=== PATIENT | female | born 1955 | race Two or more races ===

== ENCOUNTER → 2024-03-23 | Outpatient (CLI) | payer MEDICARE, MEDICAID, SELFPAY ==
--- NOTE | 2024-03-23 09:00 | XR_ITS ---
Examination: Breast ultrasound, unilateral, right complete Date and time of exam: March 23, 2024 0841 hours INDICATIONS: Mammogram 01/27/2024 10 mm focal asymmetry upper right breast MLO view Technique: Real-time garay scale ultrasonographic imaging performed right breast including all 4 quadrants as well as nipple retroareolar and axillary region. Findings: No cystic or solid mass IMPRESSION: BI-RADS Category 1: Negative study
--- NOTE | 2024-03-23 09:45 | XR_ITS ---
Examination: Diagnostic digital mammography, unilateral, right Computer aided detection 3-D breast Tomosynthesis, unilateral Date and time of exam: March 23, 2024 0853 hours INDICATIONS: Mammogram 01/27/2024 10 mm focal asymmetry upper right breast MLO view, 5.6 cm from the nipple Technique: Nonmagnified MLO, CC views of the right breast have been obtained, reconstructed from 3-D Tomosynthesis images. R2 computer aided detection program utilized for evaluation of suspicious masses and/or abnormal calcifications. 3-D Tomosynthesis images obtained. Findings: Scattered areas of fibroglandular density Breast sonogram today demonstrates no suspicious mass Spot compression MLO view again demonstrates focal asymmetry, probably benign in the upper right breast Impression: BI-RADS category 3: Probably benign findings Recommend 1 additional 6 month right mammogram follow-up to document stability of focal asymmetry upper right breast MLO view
== END | disposition home or self-care (01) ==
LOC: CDIM 08:19
PROVIDERS: PCP Physician Assistant; Referring Provider Physician Assistant; Visit Provider Physician Assistant
DX: R92.331 Mammographic heterogeneous density, right breast (principal); N64.89 Other specified disorders of breast
CPT/HCPCS: 76641; 77061; 77065; G0279

== ENCOUNTER → 2024-10-26 | Outpatient (CLI) | payer MEDICARE, MEDICAID, SELFPAY ==
--- NOTE | 2024-10-26 08:00 | XR_ITS ---
Examination: Diagnostic digital mammography, unilateral, right Computer aided detection 3-D breast Tomosynthesis, unilateral Date and time of exam: 10/26/2024 at 0750 hours INDICATIONS: Mammogram 01/27/2024 10 mm focal asymmetry upper right breast MLO view Technique: Nonmagnified MLO, CC views of the right breast have been obtained, reconstructed from 3-D Tomosynthesis images. R2 computer aided detection program utilized for evaluation of suspicious masses and/or abnormal calcifications. 3-D Tomosynthesis images obtained. Findings: Scattered areas of fibroglandular density. No interval suspicious masses Benign calcifications Impression: BI-RADS category 2: Benign findings Return to yearly follow-up mammography
== END | disposition home or self-care (01) ==
LOC: CDIM 07:40
PROVIDERS: Referring Provider Physician Assistant; Visit Provider Physician Assistant
DX: R92.321 Mammographic fibroglandular density, right breast (principal)
CPT/HCPCS: 77061; 77065; G0279

== ENCOUNTER 2024-11-30 19:34 | Emergency (ER) | payer MEDICARE, MEDICAID, SELFPAY ==
[2024-11-30 19:37] VITALS: BMI 26.2
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
[2024-11-30 19:45] VITALS: BP 198/83; PULSE 95; RESP 18; TEMP 37.1; O2SAT 97
--- NOTE | 2024-11-30 19:51 | PC.NURSE ---
1948 PPD NOTIFIED AND HAVE ARRIVED IN PT ROOM AT THIS TIME.
[2024-11-30] MEDS: ACETAMINOPHEN 500 MG TABLET 1000 MG PO (20:48)
[2024-11-30] MEDS: DIPHTH,PERTUSS(ACELL),TET VAC 0.5 ML SYR- ADULT IMi (20:48)
--- NOTE | 2024-11-30 21:12 | EKG_ITS ---
[facility] Test Date: 2024-11-30 Pat Name: GERARD HUBER Department: Room: - Gender: Female Reporter Anchor: : 1955 Requested By: Alison Burton Order Number: [id number] Reading MD: Alison Burton Measurements Intervals [place] Rate: 68 P: 62 [place]: 161 QRS: 10 QRSD: 85 T: 41 QT: 394 QTc: 421 Interpretive Statements SINUS RHYTHM No previous ECG available for comparison /store/S0/[id number]/ecg/[id number].pdf
[2024-11-30] MEDS: SODIUM CHLORIDE 0.9% 500 ML 500 ML 999 ML IV (21:34)
[2024-11-30 21:36] VITALS: BP 179/99; PULSE 77; RESP 18; O2SAT 98
[2024-11-30 21:44] LABS: Lactate (Lactic Acid) 1.7 mMol/L (0.4-2.0)
[2024-11-30 21:45] LABS: Basophils # (Auto) 0.0 Thou/mm3 (0.0-0.2); Basophils % (Auto) 0 % (0-2.5); Eosinophils # (Auto) 0.2 Thou/mm3 (0.0-0.5); Eosinophils % (Auto) 2 % (0-10); Hematocrit 39.3 % (36.0-46.0); Hemoglobin 13.0 g/dL (12.0-16.0); Immature Granulocytes Auto 0.12 Thou/mm3 (0.00-0.00); Lymphocytes # (Auto) 2.6 Thou/mm3 (1.0-4.8); Lymphocytes % (Auto) 36 % (10-50); Mean Corpuscular HGB Conc 33.1 g/dl (31.0-37.0); Mean Corpuscular Hemoglobin 31.6 pg (25.0-35.0); Mean Corpuscular Volume 95 fL (80-100); Monocytes # (Auto) 0.3 Thou/mm3 (0.0-0.8); Monocytes % (Auto) 4 % (0-12); Neutrophils # (Auto) 3.9 Thou/mm3 (1.8-7.7); Neutrophils % (Auto) 55 % (37-80); Nucleated Red Blood Cell # 0.00 Thou/mm3 (0.00-0.00); Nucleated Red Blood Cell % 0 /100 WBC (0); Platelet Count 336 Thou/mm3 (140-440); RDW Standard Deviation 42.5 fL (36.4-46.3); Red Blood Count 4.12 Miln/mm3 (4.00-5.20); White Blood Count 7.1 Thou/mm3 (3.6-11.0)
[2024-11-30 21:59] LABS: INR 1.0 (0.9-1.3); Partial Thromboplastin Time 26.5 Seconds (22.0-36.0); Prothrombin Time 10.6 Seconds (9.0-12.2)
[2024-11-30 22:02] VITALS: BP 167/78; PULSE 64; RESP 19; O2SAT 96
--- NOTE | 2024-11-30 22:18 | PD.EDADDENDU ---
Emergency Room Addendum <Alison Lyons MD - Last Filed: 11/30/24 23:31> Addendum Narrative: Please refer to the emergency department record for history and examination from initial visit. PRIMARY SURVEY: A: airway patent, phonating, no foreign bodies visualized B: breath sounds equal and symmetric, good chest rise and fall, breath sounds not distant, no crepitus, no obvious deformities or chest wall deformities C: heart sounds present and not distant, no JVD, strong pulses in all four extremities D: GCS 15, moving all four extremities E: pelvis stable, no obvious open joints, no obvious deformities, compartments generally soft F: no suggestion of G: per EMS point of care glucose within normal limits SECONDARY SURVEY: GENERAL: In general the patient is awake, interactive, in an emergency department gurney, wearing a hospital gown. HEAD/EYES/EARS/NOSE/THROAT: normo-cephalic, atraumatic, extra-ocular eye movements are intact, pupils are equal, round, and reactive to light, mucus membranes are moist, anicteric, palpebral conjunctiva is pink. Thyroid is not tender, not enlarged and not nodular, no carotid bruit, no jugular venous distension, trachea is midline, uvula unremarkable, oropharyngeal cavity unremarkable. CARDIOVASCULAR: regular rate and regular rhythm, no murmurs/rubs or gallops, normal S1 and S2, heart sounds are not distant, strong pulses in all four extremities that are equal and symmetric bilateral upper and lower extremities. CHEST/PULMONARY: normal chest rise and fall, good air movement, clear to auscultation bilaterally without rhonchi, rales or wheezing, normal inspiratory to expiratory ratios without evidence of respiratory distress. Speaking in full sentences. ABDOMEN: soft, not tender, no rebound, no guarding, normal bowel sounds that are present in all four quadrants, no pulsatile masses, bilateral inguinal rings are closed without mass or hernia. BACK: no c/t/l spine tenderness, normal range of motion without reproducible pain, no costoverterbral angle tenderness. NEUROLOGICAL: cranio-facial features are symmetric, speech is clear, no obvious word finding difficulties and answers to questions are provided without hesitation or difficulty, normal motor and sensory function of the bilateral upper and lower extremities that are equal and symmetric left and right, no evidence of cerebellar dysfunction. EXTREMITY: no tenderness to palpation over the long bones or large joints of the bilateral upper and lower extremities, no joint swelling, no joint erythema, no signs of trauma, no unilateral leg swelling and no peripheral edema. SKIN: warm, dry, well-perfused, no jaundice, no rash, normal capillary refill, no telangiectasias or petechia. PSYCH: calm, cooperative, no evidence of psychosis or agitation, thought process is appropriate and no pressured speech. <Ghada Harp - Last Filed: 11/30/24 23:17> Addendum Narrative: 2215: Care assumed from Ginna Felton NP. Past medical, surgical, social and family history reviewed. Vitals and home medications reviewed. Results and treatment plan discussed. I will assume the care of the patient at this time and will follow the patient, pending transfer. Please refer to the emergency department record for history and examination from initial visit. 2303: Discussed case with [facility]'s transfer center. Discussed patients ED course, exam findings, labs, and radiology results. I spoke with Dr. Mckeon (trauma surgeon) who also consulted Dr. Cantor (orthopedic surgeon), and they accept the patient for transfer.
--- NOTE | 2024-11-30 23:07 | PC.NURSE ---
[address] PT [address]T SENT TO [facility] AT THIS TIME. PHONE CALL FOLLOWED SOON FAX WAS CONFIRMED SENT.
--- NOTE | 2024-11-30 23:09 | PC.NURSE ---
2300 [facility] RETURNED CALL AT THIS TIME, DR FAJARDO SPEAKING WITH TRANSFER NURSE.
[2024-11-30 23:38] LABS: Collection Type, Urine Catheter; Squamous Epithelial Cell,Urine 0 /hpf (0-5)
[2024-11-30 23:45] VITALS: BP 164/70; PULSE 71; RESP 16; TEMP 36.7; O2SAT 97
[2024-11-30 23:54] LABS: Amphetamine/Methamp Scrn,U Negative (Negative); Barbiturate Screen,Urine Negative (Negative); Benzodiazepines Screen,Urine Negative (Negative); Benzoylecgonine Screen, Ur Negative (Negative); Fentanyl Screen,Urine Negative (Negative); Opiate Screen,Urine Negative (Negative); THC Screen,Urine Negative (Negative)
[2024-11-30 23:59] LABS: Bilirubin,Urine Negative (Negative); Blood,Urine Trace (Negative); Clarity,Urine Clear (Clear/Hazy); Color,Urine Colorless (Lt Yel-Yel); Glucose, Urine Negative (Negative); Ketones,Urine Negative (Negative); Leukocyte Esterase,Urine Negative (Negative); Nitrite,Urine Negative (Negative); PH,Urine 7.0 (5.0-7.0); Protein,Urine Negative (Neg - Trace); RBC,Urine < 1 /hpf (0-3); Specific Gravity,Urine 1.008 (1.001-1.035); Urobilinogen,Urine Negative mg/dL (0.0-1.0); WBC,Urine < 1 /hpf (0-5)
--- NOTE | 2024-12-01 00:02 | PC.NURSE ---
0945 PT [facility] STANTON, REPORT TO [phone].
--- NOTE | 2024-12-01 00:43 | PC.NURSE ---
REPORT GIVEN TO NURSE TIMMY AT [facility].
[2024-12-01 01:18] LABS: Alanine Aminotransferase 39 U/L (10-49); Albumin, Serum 4.4 gm/dL (3.4-4.8); Albumin/Globulin Ratio 1.6 (1.2-2.2); Alkaline Phosphatase 97 U/L (46-116); Anion Gap 11 (7-16); Aspartate Amino Transferase 71 U/L (0-34); BUN/Creatinine Ratio 9 Ratio (12-20); Bilirubin,Total 0.4 mg/dL (0.3-1.2); Blood Urea Nitrogen 7 mg/dL (9-23); Calcium 9.7 mg/dL (8.3-10.6); Calcium (Corrected) 9.7 mg/dL (8.5-10.1); Carbon Dioxide 24.0 mMol/L (20.0-31.0); Chloride 108 mMol/L (98-107); Creatinine (Component) 0.8 mg/dL (0.6-1.3); Estimated Creatinine Clearance 54.8 mL/min (>60); Globulin 2.7 gm/dL (2.3-3.5); Glucose 136 mg/dL (74-106); Osmolality,Calculated 284 (275-295); Potassium 3.5 mMol/L (3.4-5.1); Sodium 143 mMol/L (136-145); Total Protein 7.1 gm/dL (5.7-8.2); Troponin I < 0.020 ng/mL (0.0-0.045); eGFR > 60 See Note
[2024-12-01 01:34] LABS: Alcohol, Blood Medical < 3.0 mg/dL (0-10.0); Amylase 111 U/L (30-118); Lipase 63 U/L (12-53)
== END 2024-12-01 00:42 | disposition short-term general hospital (02) ==
PROVIDERS: Emergency Provider Emergency Medicine; PCP Physician Assistant
DX: S32.049A Unspecified fracture of fourth lumbar vertebra, initial encounter for closed fracture (principal); S32.591A Other specified fracture of right pubis, initial encounter for closed fracture; S32.10XA Unspecified fracture of sacrum, initial encounter for closed fracture; S00.212A Abrasion of left eyelid and periocular area, initial encounter; S19.9XXA Unspecified injury of neck, initial encounter; M62.89 Other specified disorders of muscle; R51.9 Headache, unspecified; I10 Essential (primary) hypertension; V03.10XA Pedestrian on foot injured in collision with car, pick-up truck or van in traffic accident, initial encounter; Z75.1 Person awaiting admission to adequate facility elsewhere
CPT/HCPCS: 36415; 36600; 70450; 70486; 71250; 72125; 74176; 80053; 80307; 80320; 81001; 82150; 82803; 83605; 83690; 84484; 85025; 85610; 85730; 90471; 90715; 93005; 96360; 99284; J7999; A9270; G0480

== ENCOUNTER → 2025-01-29 | Outpatient (CLI) | payer MEDICARE, MEDICAID, SELFPAY ==
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
== END | disposition home or self-care (01) ==
PROVIDERS: PCP Physician Assistant; Referring Provider Physician Assistant; Visit Provider Physician Assistant
DX: S32.591A Other specified fracture of right pubis, initial encounter for closed fracture (principal); X58.XXXA Exposure to other specified factors, initial encounter
CPT/HCPCS: 73552

== ENCOUNTER → 2025-02-12 | Outpatient (CLI) | payer MEDICARE, MEDICAID, SELFPAY ==
[2025-02-12 09:38] LABS: Quantiferon-TB* See Sep Rpt
[2025-02-13 08:35] LABS: Cocci Serology, IgM Negative (Negative)
[2025-02-15 12:48] LABS: Cocci Serology, IgG Negative (Negative)
== END | disposition home or self-care (01) ==
PROVIDERS: PCP Physician Assistant; Referring Provider Physician Assistant; Visit Provider Physician Assistant
DX: R91.1 Solitary pulmonary nodule (principal)
CPT/HCPCS: 36415; 86331; 86480; 86635